=== PATIENT | female | born 1975 | race Caucasian/White ===

== ENCOUNTER 2019-02-01 20:59 | Emergency (ER) | payer OTHER ==
[2019-02-01] MEDS ORDERED: FAMOTIDINE 20 MG/2 ML INJ IV ONE (21:20)
[2019-02-01] MEDS ORDERED: diphenhydrAMINE 50 MG/ML VIAL IV ONE (21:20)
[2019-02-01] MEDS ORDERED: SODIUM CHLORIDE 0.9% 1000 ML 1,000 ML IV ONE (21:20)
[2019-02-01] MEDS ORDERED: dexAMETHasone 20 MG/5 ML VIAL IV ONE (21:20)
--- NOTE | 2019-02-01 21:20 | Emergency Department Report ---
Blank Doc - Documentation Documentation: 43-year-old female that presents with upper and lower lips swelling intermittent x1 week. Denies knowning of the cause. Denies any SOB. Staed has itching Exam: Uvula midline. No hives. This initial assessment/diagnostic orders/clinical plan/treatment(s) is/are subject to change based on patient's health status, clinical progression and re- assessment by fellow clinical providers in the ED. Further treatment and workup at subsequent clinical providers discretion. Patient/guardians urged not to elope from the ED as their condition may be serious if not clinically assessed and managed. Initial orders include: 1- Patient sent to [facility] for further evaluation and treatment
--- NOTE | 2019-02-01 22:16 | Emergency Department Report ---
ED General Adult HPI - General Chief complaint: Allergic Reaction Stated complaint: POSS ALLERGIC REACTION/LIP SWELLING Time Seen by Provider: 02/01/19 21:17 Source: patient Mode of arrival: Ambulatory Limitations: No Limitations - History of Present Illness Initial comments: Patient is a 43-year-old female presents emergency room with complaints of int ermittent lip swelling that began a week ago. Patient states that every time she eats she begins to the notice swelling and itching. She denies any rash or lesions on the lips. She denies any specific trigger. She denies any throat swelling, difficulty swallowing, shortness of breath, rash, any other symptoms. She denies any known known allergies at all. she denies any new foods, drinks, medications, detergents, soaps, makeup. She is not on any medications at all. She denies any past medical history. - Related Data Previous Rx's Medication Instructions Recorded Last Taken Type EPINEPHrine [Epipen] 0.3 mg IJ ONCE PRN #1 auto.injct 02/01/19 Unknown Rx diphenhydrAMINE [Benadryl CAP] 50 mg PO Q8HR PRN #14 capsule 02/01/19 Unknown Rx predniSONE [Deltasone] 50 mg PO QDAY 5 Days #5 tab 02/01/19 Unknown Rx Allergies Allergy/AdvReac Type Severity Reaction Status Date / Time No Known Allergies Allergy Unverified 02/01/19 21:12 ED Review of Systems ROS: Stated complaint: POSS ALLERGIC REACTION/LIP SWELLING Other details as noted in HPI Comment: All other systems reviewed and negative ED Past Medical Hx - Past Medical History Previous Medical History?: No - Surgical History Past Surgical History?: Yes Additional Surgical History: Breast Implants - Social History Smoking Status: Never Smoker Substance Use Type: None - Medications Home Medications: Home Medications Medication Instructions Recorded Confirmed Last Taken Type EPINEPHrine [Epipen] 0.3 mg IJ ONCE PRN #1 auto.injct 02/01/19 Unknown Rx diphenhydrAMINE [Benadryl CAP] 50 mg PO Q8HR PRN #14 capsule 02/01/19 Unknown R x predniSONE [Deltasone] 50 mg PO QDAY 5 Days #5 tab 02/01/19 Unknown Rx ED Physical Exam - General Limitations: No Limitations General appearance: alert, in no apparent distress - Head Head exam: Present: atraumatic, normocephalic - Eye Eye exam: Present: normal appearance - ENT ENT exam: Present: normal orophraynx, mucous membranes moist, other (trace amount of edema to the bilateral lips, no lesions, no blisters, no rash, uvula is midline, no uvular edema, no edema of the face or surrounding the eyes) - Respiratory Respiratory exam: Present: normal lung sounds bilaterally. Absent: respiratory distress, wheezes, rales, rhonchi, stridor, chest wall tenderness, accessory muscle use, decreased breath sounds, prolonged expiratory - Cardiovascular Cardiovascular Exam: Present: regular rate, normal rhythm, normal heart sounds. Absent: systolic murmur, diastolic murmur, rubs, gallop - Neurological Exam Neurological exam: Present: alert, oriented X3 - Psychiatric Psychiatric exam: Present: normal affect, normal mood - Skin Skin exam: Present: warm, dry, intact. Absent: rash ED Course Vital Signs 02/01/19 02/01/19 21:05 23:49 Temperature 98.4 F 98.4 F Pulse Rate 70 66 Respiratory 18 18 Rate Blood Pressure 112/70 Blood Pressure 113/69 [Left] O2 Sat by Pulse 98 98 Oximetry ED Medical Decision Making - Medical Decision Making Patient is a 43-year-old female presents emergency room with complaints of intermittent lip swelling that began a week ago. Patient states that every time she eats she begins to the notice swelling and itching. She denies any rash or lesions on the lips. She denies any specific trigger. She denies any throat swelling, difficulty swallowing, shortness of breath, rash, any other symptoms. She denies any known known allergies at all. she denies any new foods, drinks, medications, detergents, soaps, makeup. She is not on any medications at all. She denies any past medical history. vitals are normal. on exam:trace amount of edema to the bilateral lips, no lesions, no blisters, no rash, uvula is midline, no uvular edema, no edema of the face or surrounding the eyes, breath sounds are normal bilaterally. Patient given Decadron, Benadryl, Pepcid, IV fluids. Patient states that her symptoms have completely resolved. Discussed case with Dr. Villagran who recommended giving patient a prescription for an EpiPen and putting pt on prednisone 50 mg daily for 5 days. advised pt to please take medication as prescribed. Please use EpiPen as directed. Please follow-up with a primary care doctor in the next 2 days and discuss referral to an [employer] [employer] for allergy testing. Return to the emergency room immediately for any new or worsening symptoms or if you have to use the EpiPen. - Differential Diagnosis allergic reaction, stomatitis, herpes, angioedema, food allergy Critical care attestation.: If time is entered above; I have spent that time in minutes in the direct care of this critically ill patient, excluding procedure time. ED Disposition Clinical Impression: Lip swelling Disposition: DC- TO HOME OR SELFCARE Is pt being admited?: No Does the pt Need Aspirin: No Condition: Stable Instructions: Angioedema (ED) Additional Instructions: Please take medication as prescribed. Please use EpiPen as directed. Please follow-up with a primary care doctor in the next 2 days and discuss referral to an [employer] for allergy testing. Return to the emergency room immediately for any new or worsening symptoms or if you have to use the EpiPen. Prescriptions: diphenhydrAMINE [Benadryl CAP] 50 mg PO Q8HR PRN #14 capsule PRN Reason: swelling predniSONE [Deltasone] 50 mg PO QDAY 5 Days #5 tab EPINEPHrine [Epipen] 0.3 mg IJ ONCE PRN #1 auto.injct PRN Reason: Angioedema Referrals: DAVID MORALES MD [Primary Care Provider] - 2-3 Days Time of Disposition: 23:25 Print Language: PORTUGUESE
[2019-02-01 23:50] VITALS: BP 113/69
== END 2019-02-01 23:49 | disposition home or self-care (01) ==
LOC: ED 20:59
DX: K13.0 Diseases of lips (principal); Z79.899 Other long term (current) drug therapy
CPT/HCPCS: 96374; 96375; 99282; J1100; J1200; J7030

== ENCOUNTER 2019-02-12 05:10 | Emergency (ER) | payer OTHER ==
[2019-02-12 06:26] LABS: Basophils # (Auto) 0.1 K/mm3 (0.0-0.1); Basophils % (Auto) 0.7 % (0.0-1.8); Eosinophils # (Auto) 0.1 K/mm3 (0.0-0.4); Eosinophils % (Auto) 1.4 % (0.0-4.3); Hematocrit 40.8 % (30.3-42.9); Hemoglobin 13.8 gm/dl (10.1-14.3); Lymphocytes # (Auto) 2.3 K/mm3 (1.2-5.4); Lymphocytes % (Auto) 29.1 % (13.4-35.0); Mean Corpuscular HGB Conc 34 % (30-34); Mean Corpuscular Volume 88 fl (79-97); Monocytes # (Auto) 0.6 K/mm3 (0.0-0.8); Platelet Count 201 K/mm3 (140-440); Red Blood Count 4.62 M/mm3 (3.65-5.03); Red Cell Distribution Width 13.2 % (13.2-15.2)
[2019-02-12 06:33] LABS: BUN/Creatinine Ratio 18; Blood Urea Nitrogen 11 mg/dL (7-17); Calcium 8.9 mg/dL (8.4-10.2); Hemolysis Index 13
--- NOTE | 2019-02-12 08:40 | Emergency Department Report ---
ED Dizziness HPI - General Chief Complaint: Dizziness Stated Complaint: HEADACHE, DIZZY, UNABLE TO SLEEP Time Seen by Provider: 02/12/19 08:25 Source: patient Mode of arrival: Ambulatory Limitations: No Limitations - History of Present Illness Initial Comments: 43-year-old female with no known past medical history presents to ED with dizziness 5 days. Patient reports lightheadedness, nausea with a few episodes of vomiting, generalized weakness, and trouble sleeping. Patient denies any focal weakness or numbness, however she does report that it feels as if her whole body is tingling. Patient states she was seen last week for intermittent lip swelling. She was given a prescription for prednisone and Benadryl. Believes that her symptoms began when she began taking these medications. She denies having any more episodes of lip swelling. At triage, it is reported that the patient was complaining of headaches, however patient denies any headaches or any other pain. MD Complaint: dizziness -: days(s) (5) Description: lightheadedness History of Same: No Severity: moderate Improves With: nothing Worsens With: nothing Associated Symptoms: malaise. denies: chest pain, cough, fever/chills, shortness of breath - Related Data Previous Rx's Medication Instructions Recorded Last Taken Type EPINEPHrine [Epipen] 0.3 mg IJ ONCE PRN #1 auto.injct 02/01/19 Unknown Rx diphenhydrAMINE [Benadryl CAP] 50 mg PO Q8HR PRN #14 capsule 02/01/19 Unknown Rx predniSONE [Deltasone] 50 mg PO QDAY 5 Days #5 tab 02/01/19 Unknown Rx Allergies Allergy/AdvReac Type Severity Reaction Status Date / Time No Known Allergies Allergy Unverified 02/01/19 21:12 ED Review of Systems ROS: Stated complaint: HEADACHE, DIZZY, UNABLE TO SLEEP Other details as noted in HPI Comment: All other systems reviewed and negative Constitutional: denies: chills, fever Respiratory: denies: cough, shortness of breath Cardiovascular: denies: chest pain, palpitations Gastrointestinal: nausea, vomiting. denies: abdominal pain Neurological: paresthesias. denies: headache, abnormal gait Psychiatric: other (reports difficulty sleeping) ED Past Medical Hx - Past Medical History Previous Medical History?: No - Surgical History Past Surgical History?: Yes Additional Surgical History: Breast Implants - Social History Smoking Status: Never Smoker Substance Use Type: None - Medications Home Medications: Home Medications Medication Instructions Recorded Confirmed Last Taken Type EPINEPHrine [Epipen] 0.3 mg IJ ONCE PRN #1 auto.injct 02/01/19 Unknown Rx diphenhydrAMINE [Benadryl CAP] 50 mg PO Q8HR PRN #14 capsule 02/01/19 Unknown Rx predniSONE [Deltasone] 50 mg PO QDAY 5 Days #5 tab 02/01/19 Unknown Rx ED Physical Exam - General Limitations: No Limitations General appearance: alert, in no apparent distress - Head Head exam: Present: atraumatic, normocephalic - Eye Eye exam: Present: normal appearance, EOMI - ENT ENT exam: Present: mucous membranes moist - Neck Neck exam: Present: normal inspection - Respiratory Respiratory exam: Present: normal lung sounds bilaterally. Absent: respiratory distress - Cardiovascular Cardiovascular Exam: Present: regular rate, normal rhythm - GI/Abdominal GI/Abdominal exam: Present: soft. Absent: distended, tenderness - Extremities Exam Extremities exam: Present: normal inspection - Neurological Exam Neurological exam: Present: alert, oriented X3, CN II-XII intact, normal gait, other ([id number] testing normal). Absent: motor sensory deficit - Psychiatric Psychiatric exam: Present: normal affect, normal mood - Skin Skin exam: Present: warm, dry, intact, normal color ED Course Vital Signs 02/12/19 02/12/19 05:23 08:55 Temperature 98.2 F Pulse Rate 68 73 Respiratory 18 17 Rate Blood Pressure 120/69 Blood Pressure 116/75 [Left] O2 Sat by Pulse 97 99 Oximetry ED Medical Decision Making - Lab Data Result diagrams: 02/12/19 05:47 02/12/19 05:47 - Radiology Data Radiology results: report reviewed, image reviewed - Medical Decision Making 43 yo F with dizziness, whole-body paresthesias, nausea, insomnia, generalized weakness. Symptoms possibly due adverse effects of prednisone and benadryl which she received prescriptions for last week due to angioedema. Workup today is unremarkable. Labs are normal. CT Head is normal. Neuro exam is normal and nonfocal. Pt is not orthostatic. Vitals are normal. She states she already has an appt scheduled with her physician in 4 days on February 16. Will discharge at this time. Pt advised to discontinue the prednisone and benadryl. Return precautions given. - Differential Diagnosis anemia, dehydration, anxiety, intracranial abnormality, med side effect Critical care attestation.: If time is entered above; I have spent that time in minutes in the direct care of this critically ill patient, excluding procedure time. ED Disposition Clinical Impression: Dizziness Disposition: - TO HOME OR SELFCARE Is pt being admited?: No Condition: Stable Instructions: Dizziness (ED) Additional Instructions: Stop taking the prednisone. Only take benadryl as needed. Follow up with your doctor on Saturday, as scheduled. Referrals: GALILEO SALCEDO MD [Primary Care Provider] - 3-5 Days PRIMARY CARE, [Referring] - 3-5 Days [facility] [Provider Group] - 3-5 Days Time of Disposition: 09:54
--- NOTE | 2019-02-12 09:33 | Cat Scan Report ---
CT head without contrast INDICATION : dizziness. TECHNIQUE: Axial imaging performed from the skull apex through the skull base without the use of con trast. All CT scans at this location are performed using CT dose reduction for ALARA by means of aut omated exposure control. COMPARISON: None FINDINGS: Parenchyma: No acute intracranial hemorrhage or parenchymal abnormality. Ventricles: Ventricles are normal in size and appear symmetric. Soft tissues: Soft tissues including the orbits appear normal. Bones: No acute osseous abnormality. Sinuses: Sinuses and mastoid air cells are clear. IMPRESSION: No acute abnormality. Signer Name: Medardo Villasenor MD Signed: 02/12/2019 9:28 AM Workstation Name: [id number]
[2019-02-12 10:09] VITALS: BP 118/61
== END 2019-02-12 10:09 | disposition home or self-care (01) ==
LOC: ED 05:10
DX: R42 Dizziness and giddiness (principal); R11.2 Nausea with vomiting, unspecified; R53.81 Other malaise
CPT/HCPCS: 36415; 70450; 80048; 84703; 85025